=== PATIENT | female | born 1985 | race Caucasian/White ===

== ENCOUNTER → 2024-05-10 11:51 | Outpatient (BNVA) | payer OTHER, SELFPAY | PROVIDERS: Visit Provider Registered Nurse | DX: S46.812A Strain of other muscles, fascia and tendons at shoulder and upper arm level, left arm, initial encounter (principal); X50.0XXA Overexertion from strenuous movement or load, initial encounter | CPT/HCPCS: 99202 ==

== ENCOUNTER → 2024-05-13 08:49 | Outpatient (BNVA) | payer OTHER, SELFPAY | PROVIDERS: Visit Provider Registered Nurse | DX: S46.812A Strain of other muscles, fascia and tendons at shoulder and upper arm level, left arm, initial encounter (principal); X50.0XXA Overexertion from strenuous movement or load, initial encounter | CPT/HCPCS: 99213 ==

== ENCOUNTER → 2024-05-18 10:40 | Outpatient (BNVA) | payer OTHER, SELFPAY | PROVIDERS: PCP Internal Medicine; Visit Provider Registered Nurse | DX: S46.812A Strain of other muscles, fascia and tendons at shoulder and upper arm level, left arm, initial encounter (principal); X50.0XXA Overexertion from strenuous movement or load, initial encounter | CPT/HCPCS: 99214 ==

== ENCOUNTER → 2024-05-24 12:01 | Outpatient (BNVA) | payer OTHER, SELFPAY | PROVIDERS: PCP Internal Medicine; Visit Provider Registered Nurse | DX: S46.812D Strain of other muscles, fascia and tendons at shoulder and upper arm level, left arm, subsequent encounter (principal); X50.0XXD Overexertion from strenuous movement or load, subsequent encounter | CPT/HCPCS: 99213 ==

== ENCOUNTER → 2024-05-30 09:32 | Outpatient (BNVA) | payer OTHER, SELFPAY | PROVIDERS: PCP Internal Medicine; Visit Provider Registered Nurse | DX: S46.812D Strain of other muscles, fascia and tendons at shoulder and upper arm level, left arm, subsequent encounter (principal); X50.0XXD Overexertion from strenuous movement or load, subsequent encounter | CPT/HCPCS: 99213 ==

== ENCOUNTER → 2024-06-08 09:57 | Outpatient (BNVA) | payer OTHER, SELFPAY | PROVIDERS: PCP Internal Medicine; Visit Provider Registered Nurse | DX: S46.812D Strain of other muscles, fascia and tendons at shoulder and upper arm level, left arm, subsequent encounter (principal); X50.0XXD Overexertion from strenuous movement or load, subsequent encounter; M54.2 Cervicalgia; G56.82 Other specified mononeuropathies of left upper limb | CPT/HCPCS: 99213 ==

== ENCOUNTER → 2024-06-15 10:16 | Outpatient (BNVA) | payer OTHER, SELFPAY | PROVIDERS: PCP Internal Medicine; Visit Provider Registered Nurse | DX: S46.812D Strain of other muscles, fascia and tendons at shoulder and upper arm level, left arm, subsequent encounter (principal); X50.0XXD Overexertion from strenuous movement or load, subsequent encounter; M54.2 Cervicalgia; G56.92 Unspecified mononeuropathy of left upper limb | CPT/HCPCS: 99213 ==

== ENCOUNTER → 2024-07-01 09:57 | Outpatient (BNVA) | payer OTHER, SELFPAY | PROVIDERS: PCP Internal Medicine; Visit Provider Registered Nurse | DX: M54.2 Cervicalgia (principal); G56.92 Unspecified mononeuropathy of left upper limb; S46.812D Strain of other muscles, fascia and tendons at shoulder and upper arm level, left arm, subsequent encounter; X50.0XXD Overexertion from strenuous movement or load, subsequent encounter | CPT/HCPCS: 99213 ==

== ENCOUNTER 2024-07-08 11:00 | Outpatient (RCR) | payer OTHER, SELFPAY ==
--- NOTE | 2024-05-24 14:25 | MHC.PT.EP ---
[facility] [place] Office [place] Office [place] Office [address] [phone] F: [phone] F: [phone] F: [phone] F: [phone] Physical Therapy Plan of Care Date of Evaluation: 05/24/24 Date of Surgery: Diagnosis: LEFT trapezius strain (MD Dx) Also LEFT shoulder subacromial impingement syndrome (PT Dx) Assessment: Patient is a pleasant 39 y.o. female, works in [employer], who is referred to PT by Lilia Quiles NP of [facility] with Dx of LEFT trapezius strain. She is also presenting with LEFT shoulder subacromial impingement syndrome. Patient impairments include pain, poor posture, limited ROM, weakness. 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 Patient will benefit from skilled PT to address aforementioned impairments and functional limitations to meet established goals. Frequency and Duration: The patient will be seen 2x/week for 4 weeks Short Term Goals: 2 weeks Patient demonstrates consistency and independence with HEP to self manage symptoms. Fdc Goals: 4 weeks Patient presents with increased L shoulder AROM 140 degrees to be able to wash hair independently. Patient presents with increased cervical AROM rotation 65 degrees bilaterally to look over shoulders when driving. Treatment Plan: Modalities to reduce pain, spasms and effusion. Manual therapy to restore motion and function. Therapeutic exercise to improve strength and flexibility. Neuromuscular re-education for posture and balance. Therapeutic activities to return to functional activities of daily living. Electronically signed by: Honey León, PT, DPT Please sign and return to therapist. Thank you for your referral.
--- NOTE | 2024-08-24 11:39 | MHC.PT.DC ---
[facility] [place] Office [place] Office [place] Office [address] Mildred Neumann 140 [facility] [phone] F: [phone] F: [phone] F: [phone] F: [phone] Physical Therapy Discharge Report Diagnosis: LEFT trapezius strain (MD Dx) Also LEFT shoulder subacromial impingement syndrome (PT Dx) Date of Surgery: Date of Evaluation: 05/24/24 Date of Discharge: 08/24/24 Treatments to Date: 13 Cancellations to Date: No Shows to Date: Discharge Status: Recommend MD Follow-up Discharge Summary: Jessica was lase seen on 07/08/24 for her last PT session. The assessment on that date reads, She tolerates manual therapy much better now, less muscle guarding and allowing for greater PROM into rotations and sidebending. However, it does not centralize her UE symptoms. A MRI of her neck is needed to see is there is disc involvement to direct further care. She was scheduled to have an MRI and completed approved PT. Electronically signed by: Honey León, PT, DPT Please sign and return to therapist. Thank you for your referral.
== END 2024-08-24 11:39 | disposition home or self-care (01) ==
LOC: HO.PT 11:00
PROVIDERS: PCP Internal Medicine; Visit Provider Registered Nurse
DX: M54.2 Cervicalgia (principal); S46.812D Strain of other muscles, fascia and tendons at shoulder and upper arm level, left arm, subsequent encounter
CPT/HCPCS: 97014; 97035; 97110; 97140; 97161

== ENCOUNTER 2024-07-11 13:37 | Outpatient (REF) | payer OTHER, SELFPAY ==
--- NOTE | ~2024-07-11 | MR_ITS ---
EXAMINATION: MR CERVICAL SPINE WITHOUT CONTRAST CLINICAL INFORMATION: 39-year-old with cervicalgia and left arm neuropathy. Self-reported pain center to left side of neck and spasms on left side. Headaches. COMPARISON: None available. TECHNIQUE: MRI of the cervical spine was obtained using routine sequences without contrast. FINDINGS: ALIGNMENT: There is mild lordotic reversal centered at C5-C6. There is trace anterolisthesis at C4-C5. CRANIOCERVICAL JUNCTION/C1-C2 ARTICULATIONS: Intact and aligned. VISUALIZED INTRACRANIAL STRUCTURES: Within normal limits. VERTEBRAL BODIES: Vertebral body heights are well maintained. DISC SPACES AND ENDPLATES: There is moderate disc volume loss at C6-C7 with loss of intradiscal T2-weighted signal at this level and minor anterior marginal endplate spurring. There is minor anterior marginal endplate spurring at C5-C6 with loss of intradiscal T2-weighted signal at this level without significant disc space height loss. BONE MARROW: There is type I degenerative marrow signal change seen along the endplates at C6-C7 asymmetric to the left. No suspicious marrow-replacing process or bone marrow edema. C2-C3: No disc herniation or canal stenosis. No significant DJD or neural foraminal stenosis. C3-C4: No disc herniation or canal stenosis. No significant DJD or neural foraminal stenosis. C4-C5: Minimal central disc protrusion with slight indentation of the ventral thecal sac without cord impingement or significant canal stenosis. No significant DJD or neural foraminal stenosis. C5-C6: Broad-based central to right paramedian disc herniation noted with encroachment on the ventral dural sac asymmetric to the right without cord impingement. Mild central canal stenosis is noted. There is uncinate process spurring, left more than right with [id number] left-sided neural foraminal stenosis. C6-C7: There is a right paramedian disc protrusion and disc osteophyte complex with effacement of the dural sac on the right and there is a broad-based central to left paramedian to lateral disc protrusion with effacement of the thecal sac on the left with mild left-sided ventral cord deformity/impingement. Ligamentum flavum thickening is noted with moderate spinal canal stenosis asymmetric to the left. There is uncovertebral spurring noted bilaterally with minor bilateral facet joint arthropathy. There is moderate narrowing of the left lateral recess likely encroaching on the exiting left C7 nerve root. There is moderate right-sided and [id number] left-sided neural foraminal stenosis. C7-T1: Normal annular contour. No significant DJD, canal or neural foraminal stenosis. T1-T2: Normal annular contour. No significant DJD, canal or neural foraminal stenosis. SPINAL CORD: The cervical and visualized upper thoracic spinal cord is normal in signal intensity throughout, without focal lesion, edema or syrinx. There is probably some degree of chronic spinal cord volume loss on the left at C6-C7. EXTRACRANIAL SOFT TISSUES: The visualized extracranial head/neck soft tissues are unremarkable within the limitations of the study. Normal signal voids are seen within the visualized major neck vessels. No prevertebral soft tissue edema. MR/MR cervical spine wo con IMPRESSION: 1. Lordotic reversal centered at C5-C6 with trace anterolisthesis at C4-C5. 2. Discogenic degenerative changes at C6-C7 and C5-C6 as discussed above, with disc herniations at both levels, with mild left-sided ventral cord deformity/impingement at C6-C7 and mild left-sided ventral cord volume loss at this level. Moderate spinal canal stenosis at C6-C7 and mild spinal canal stenosis at C5-C6. Left lateral recess stenosis at C6-C7 likely encroaching on the left C7 nerve root. 3. Bilateral uncovertebral spurring at C6-C7 with moderate right-sided and [id number] left-sided neural foraminal stenosis. Elij-xj-[id number] left-sided neural foraminal stenosis at C5-C6. 4. Minimal central disc protrusion at C4-C5. Electronically signed by: Sky Iqbal MD 07/27/2024 05:12 PM EDT
== END 2024-07-11 13:38 | disposition home or self-care (01) ==
LOC: HO.MRI 13:37
PROVIDERS: PCP Internal Medicine; Visit Provider Internal Medicine
DX: M54.2 Cervicalgia (principal); G56.92 Unspecified mononeuropathy of left upper limb
CPT/HCPCS: 72141

== ENCOUNTER → 2024-07-15 10:32 | Outpatient (BNVA) | payer OTHER, SELFPAY | PROVIDERS: PCP Internal Medicine; Visit Provider Registered Nurse | DX: M54.2 Cervicalgia (principal); G56.92 Unspecified mononeuropathy of left upper limb; S46.812D Strain of other muscles, fascia and tendons at shoulder and upper arm level, left arm, subsequent encounter; X50.0XXD Overexertion from strenuous movement or load, subsequent encounter | CPT/HCPCS: 99213 ==

== ENCOUNTER → 2024-08-02 10:01 | Outpatient (BNVA) | payer OTHER, SELFPAY | PROVIDERS: PCP Internal Medicine; Visit Provider Registered Nurse | DX: M54.2 Cervicalgia (principal); G56.92 Unspecified mononeuropathy of left upper limb; S46.812D Strain of other muscles, fascia and tendons at shoulder and upper arm level, left arm, subsequent encounter; X50.0XXD Overexertion from strenuous movement or load, subsequent encounter; M25.812 Other specified joint disorders, left shoulder | CPT/HCPCS: 99214 ==

== ENCOUNTER → 2024-08-16 09:55 | Outpatient (BNVA) | payer OTHER, SELFPAY | PROVIDERS: PCP Internal Medicine; Visit Provider Registered Nurse | DX: M54.2 Cervicalgia (principal); G56.92 Unspecified mononeuropathy of left upper limb; S46.812D Strain of other muscles, fascia and tendons at shoulder and upper arm level, left arm, subsequent encounter; X50.0XXD Overexertion from strenuous movement or load, subsequent encounter; M25.812 Other specified joint disorders, left shoulder | CPT/HCPCS: 99213 ==